=== PATIENT | female | born 1950 | race Hispanic/Latino ===

== ENCOUNTER 2023-07-08 13:04 | Emergency (ER) | payer MEDICARE ==
[~2023-07-08] VITALS: Ht 157.5 cm; Wt 92.5 kg
[2023-07-08] MEDS: DEXAMETHASONE SOD PHOSPHATE 4 MG/ML 1ML VIAL IM ONE (16:17)
[2023-07-08] MEDS: KETOROLAC 30MG VIAL (30MG/ML) IVP ONE (16:21)
[2023-07-08] MEDS ORDERED: PRED50TA2 PO (18:09)
[2023-07-08] MEDS ORDERED: OMEP40CA21 PO (18:09)
[2023-07-08 18:23] VITALS: BP 132/76; PULSE 80; RESP 16; O2SAT 97
== END 2023-07-08 18:41 | disposition home or self-care (01) ==
LOC: EDH 13:04
DX: M19.032 Primary osteoarthritis, left wrist (principal); M19.031 Primary osteoarthritis, right wrist; M17.12 Unilateral primary osteoarthritis, left knee; M11.20 Other chondrocalcinosis, unspecified site; I10 Essential (primary) hypertension; E11.9 Type 2 diabetes mellitus without complications; E78.00 Pure hypercholesterolemia, unspecified; Z90.49 Acquired absence of other specified parts of digestive tract; Z90.89 Acquired absence of other organs; Z90.710 Acquired absence of both cervix and uterus; Z98.890 Other specified postprocedural states
CPT/HCPCS: 99284; 96374; 84550; 36415; 73100 ×2; 73562; 96372; J1100; J1885